=== PATIENT | female | born 1950 | race Caucasian/White ===

== ENCOUNTER → 2017-06-15 | Outpatient (CLI) | payer OTHER ==
--- NOTE | ~2017-06-15 | CT138 ---
[facility] A Service of [facility] RADIOLOGY TEXT RESULTS PATIENT: JAMEEL WARNER LOCATION: [facility] : 46 UNIT #: [id number] AGE: [address]: Bud Truong MD SEX: F ORDER DR: [id number] [facility] [address] [place], [place] [address] [id number] O MR#: [id number] Acc #: [id number] NAME: JAMEEL WARNER : 1950 SEX: F STUDY DATE/TIME: 06/15/2017 14:34 UNIT: [facility] ROOM: STUDY DESCRIPTION: CT Lung screening initial Attending Physician: Bud Truong M.D. Referring Physician: Bud Truong M.D. Ordering Physician: Bud Truong M.D. Primary Care Physician: Bud Truong M.D. MEDICAL IMAGING REPORT This report is preliminary unless electronic signature is present FINDINGS Lung cancer screening exam HISTORY This patient has a 37 pack-year smoking history. This is for initial screening examination. TECHNIQUE Axial CT images were obtained from the thoracic inlet through the dome of the diaphragm per the low-dose lung cancer screening. This CT exam was performed with one or more of the following radiation dose reduction techniques: automatic control, adjustment of mA and/or kV according to patient size, and iterative reconstruction. FINDINGS This patient does have mild bilateral emphysematous changes within the left lower lobe. There is a 7 mm nodule with is somewhat lobulated contour. There is also an area of consolidation within the right middle lobe which is favored to represent some scarring, it does have a more nodular component. More superiorly this area measures up to about 1.1 cm. Thyroid gland does appear somewhat enlarged and heterogeneous which may reflect the presence of some underlying nodules, trachea and esophagus appear unremarkable. There is a trace pericardial fluid/thickening. Thoracic aorta measures within normal size limits. Mediastinal lymph nodes do not appear pathologically enlarged. Gallbladder is surgically absent. There are left renal cysts as well as superior pole of the left kidney which are not associated with any evidence of obstruction. 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 Bilateral breast implants are noted. No aggressive osseous abnormalities are seen. [facility]. [facility] A Service of [facility] RADIOLOGY TEXT RESULTS PATIENT: JAMEEL WARNER LOCATION: [facility] : 46 UNIT #: [id number] AGE: [address]: Bud Truong MD SEX: F ORDER DR: IMPRESSION 1. This patient has what I think is probably just some scarring within the right middle lobe, however it does have a more nodular configuration superiorly measuring up to about 1.1 cm. In addition, this patient has a nodule within the left lower lobe measuring about 7 mm which is indeterminate. I would suggest short-term CT followup in 3 months to document stability of these areas. PET is felt to be of limited utility in this setting, as the 7 mm nodule would probably be below the resolution of PET. Lung-RADS 4A suspicious findings. Followup CT in 3 months. 2. Prominent thyroid gland with some heterogeneity which could reflect the presence of some underlying nodules this could be better assessed with dedicated thyroid ultrasound as deemed clinically appropriate. 3. Nonobstructing stones identified within the superior pole of the left kidney. 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 Kelly Ferris M.D. THIS IS AN ELECTRONICALLY VERIFIED REPORT Kelly Ferris M.D. at 06/16/2017 4:26 PM AFF/rnr TD: 06/16/2017 12:50 JOB #: [id number] MEDICAL IMAGING REPORT Page 1 of 1 COPY
== END | disposition home or self-care (01) ==
LOC: CCAT 14:06
DX: F17.210 Nicotine dependence, cigarettes, uncomplicated (principal)
CPT/HCPCS: G0297

== ENCOUNTER → 2017-06-30 | Outpatient (CLI) | payer OTHER ==
--- NOTE | ~2017-06-30 | US128 ---
[id number] [facility] [address]. [place], [place] [address] [id number] O MR#: [id number] Acc #: [id number] NAME: JAMEEL WARNER : 1950 SEX: F STUDY DATE/TIME: 06/30/2017 9:29 UNIT: [facility] ROOM: STUDY DESCRIPTION: Thyroid Attending Physician: Bud Truong M.D. Referring Physician: Bud Truong M.D. Ordering Physician: Bud Truong M.D. Primary Care Physician: Bud Truong M.D. MEDICAL IMAGING REPORT This report is preliminary unless electronic signature is present EXAM Thyroid ultrasound. DATE OF STUDY 06/30/2017 CLINICAL HISTORY Possible thyroid nodule identified incidentally on lung cancer screening CT. Followup ultrasound recommended. FINDINGS In the right lobe of the gland, there is a hypoechoic nodule measuring 1.5 x 1.2 x 1.3 cm. Additional subcentimeter lesions are also seen in the right lobe of the gland. In the left lobe of the gland, there is a large isoechoic nodule in the midportion of the gland measuring 2.1 x 2.6 x 1.9 cm, and an additional subcentimeter nodule. IMPRESSION Scattered nodules in the gland bilaterally most of which are less than 1 cm in size. Largest nodule on the right is 1.5 x 1.2 x 1.3 cm. It is hypoechoic with some through transmission suggesting perhaps it may be slightly cystic. A more solid appearing isoechoic nodule is seen on the left measuring 2.1 x 2.6 x 1.9 cm. Based on ultrasound appearance, consider needle aspiration of the dominant left lobe nodule. Dictated by... Abdullahi Henning M.D. THIS IS AN ELECTRONICALLY VERIFIED REPORT Abdullahi Henning M.D. at 07/01/2017 2:51 PM ELVIN/mookie TD: 07/01/2017 12:19 JOB #: [id number] MEDICAL IMAGING REPORT Page 1 of 1 COPY
== END | disposition home or self-care (01) ==
LOC: CWCC 09:15
DX: E04.2 Nontoxic multinodular goiter (principal)
CPT/HCPCS: 76536